=== PATIENT | female | born 1980 ===

== ENCOUNTER 2017-05-16 11:23 | Emergency (ER) | payer SELFPAY ==
--- NOTE | 2017-05-16 11:56 | C.PDOC ---
History Of Present Illness 36 year old female presents to the ED with complaints of blurry vision, bilateral eye itching, pain , and tearing for five days. Patient states symptoms are worse for the right eye than the left. She notes similar symptoms five years ago and does wear glasses but no contact lenses. Patient denies injury or redness of the eyes. Time Seen by Provider: 05/16/17 11:56 Chief Complaint (Nursing): Eye Problem History Per: Patient History/Exam Limitations: no limitations Onset/Duration Of Symptoms: Days (5 days ) Current Symptoms Are (Timing): Still Present Injury To Eye?: No Quality: "Pain" Wears Contact Lens?: No Associated Symptoms: Pain, Itching. denies: FB Sensation Recent travel outside of the [place]: No Past Medical History Reviewed: Historical Data, Nursing Documentation, Vital Signs Vital Signs: Last Vital Signs Temp 98.1 F 05/16/17 13:05 Pulse 71 05/16/17 13:05 Resp 18 05/16/17 13:05 BP 119/65 05/16/17 13:05 Pulse Ox 98 05/16/17 13:05 Family History: States: Other Other Family History: Non-contributory. - Social History Hx Alcohol Use: No Hx Substance Use: No - Immunization History Hx Tetanus Toxoid Vaccination: (unk) Hx Influenza Vaccination: No Hx Pneumococcal Vaccination: (unk) Review Of Systems Except As Marked, All Systems Reviewed And Found Negative. Constitutional: Negative for: Fever Eyes: Negative for: Conjunctivae Inflammation Physical Exam - Physical Exam Appears: Non-toxic, No Acute Distress Skin: Warm, Dry Eye(s): bilateral: Normal Inspection, PERRL, EOMI, Other (no conjunctival injection. no corneal abrasions seen w fluor staining. IOP 13 OD 22 OS. ) Neurological/Psych: Oriented x3 ED Course And Treatment O2 Sat by Pulse Oximetry: 99 (room air ) Progress Note: Patient was given 0.5% Ophth Soln. Disposition - Disposition Referrals: Eliceo Herbert MD [Staff Provider] - Disposition: HOME/ ROUTINE Disposition Time: 12:41 Condition: STABLE Additional Instructions: Please follow up with the eye doctor. You can also try zatidor eye drops available [id number]. Return to the ER for any worsening symptoms or for any other concerns. Prescriptions: Erythromycin 0.5% [Erythromycin] 1 applic OU BID #1 tube Instructions: Eye Pain (ED) Forms: General Discharge Instructions, [facility] (Azeri) - Clinical Impression Clinical Impression: Itchy eyes - Scribe Statement The provider has reviewed the documentation as recorded by the Scribe Shirley Carolina All medical record entries made by the Scribe were at my direction and personally dictated by me. I have reviewed the chart and agree that the record accurately reflects my personal performance of the history, physical exam, medical decision making, and the department course for this patient. I have also personally directed, reviewed, and agree with the discharge instructions and disposition.
[2017-05-16] MEDS ORDERED: Tetracaine 0.5% Ophth 2 ML BOTTLE OU ONE (12:03)
[2017-05-16] MEDS ORDERED: Tetracaine 0.5% Ophth (OR ONLY) ONE (12:05)
[2017-05-16] MEDS ORDERED: Fluorescein 1 mg Ophthalmic Strip ONE (12:05)
[2017-05-16 13:07] VITALS: BP 119/65; PULSE 71; RESP 18; TEMP 98.1
[2017-05-16 20:23] VITALS: O2SAT 99
== END 2017-05-16 13:06 | disposition home or self-care (01) ==
LOC: C.ER 11:23
DX: H57.8 Other specified disorders of eye and adnexa (principal)

== ENCOUNTER 2017-09-16 00:09 | Emergency (ER) | payer SELFPAY ==
[2017-09-16 00:39] VITALS: O2SAT 100
--- NOTE | 2017-09-16 01:04 | C.PDOC ---
History Of Present Illness Patient presents to the ER with a complaint of worsening left lower thoracic pain for the past 3 days that worsens with cough. Patients she has been coughing intermittently for the past 15 days. She is currently speaking in complete sentences and denies fever or chills. Time Seen by Provider: 09/16/17 01:04 Chief Complaint (Nursing): Back Pain History Per: Patient History/Exam Limitations: no limitations Onset/Duration Of Symptoms: Days Current Symptoms Are (Timing): Still Present Quality Of Discomfort: Unable To Describe Severity: Moderate Pain Scale Rating Of: 4 Previous Symptoms: None Associated Symptoms: None Exacerbating Factor(s): Other (Cough) Recent travel outside of the [place]: No Past Medical History Reviewed: Historical Data, Nursing Documentation, Vital Signs Vital Signs: Last Vital Signs Temp 98.8 F 09/16/17 00:35 Pulse 67 09/16/17 00:35 Resp 18 09/16/17 00:35 BP 117/77 09/16/17 00:35 Pulse Ox 100 09/16/17 01:35 Family History: States: No Known Family Hx - Social History Hx Alcohol Use: No Hx Substance Use: No - Immunization History Hx Tetanus Toxoid Vaccination: (unk) Hx Influenza Vaccination: No Hx Pneumococcal Vaccination: (unk) Review Of Systems Constitutional: Negative for: Fever, Chills Respiratory: Positive for: Cough. Negative for: Wheezing Gastrointestinal: Negative for: Nausea, Vomiting, Abdominal Pain Musculoskeletal: Positive for: Other (Left rib pain) Physical Exam - Physical Exam Appears: Non-toxic Skin: Warm, Dry Head: Normacephalic Oral Mucosa: Moist Chest: Symmetrical, Tenderness (Left rib cage on ribs 9-12, no crepitus palpated.) Cardiovascular: Rhythm Regular Respiratory: No Rales, Rhonchi (Scattered), No Wheezing Gastrointestinal/Abdominal: Soft, No Tenderness Neurological/Psych: Oriented x3, Normal Speech ED Course And Treatment - Laboratory Results Result Diagrams: 09/16/17 01:28 09/16/17 01:28 ECG: Interpreted By Me O2 Sat by Pulse Oximetry: 100 (Room air) Pulse Ox Interpretation: Normal - Radiology CXR: Interpreted by Me, Viewed By Me CXR Interpretation: No: Infiltrates, Fracture, Pnemothorax Progress Note: Blood work, CXR, flu swab, and urinalysis ordered. IV fluids, motrin, and toradol administered. Reevaluation Time: 02:24 Reassessment Condition: Improved Disposition Counseled Patient/Family Regarding: Studies Performed, Diagnosis, Need For Followup, Rx Given - Disposition Referrals: [facility] [Outside] [facility] [Outside] Disposition: HOME/ ROUTINE Disposition Time: 01:04 Condition: FAIR Additional Instructions: Please return if symptoms recur Prescriptions: Azithromycin [Zithromax Tri-Duong] 500 mg PO DAILY #3 tablet Benzonatate [Tessalon Perles] 100 mg PO TID #15 sgl Ibuprofen [Motrin Tab] 800 mg PO TID PRN #15 tab PRN Reason: Pain, Moderate (4-7) Instructions: Upper Respiratory Infection (ED), Chest Wall Pain (ED) Forms: [facility] (Russian) - Clinical Impression Clinical Impression: URI (upper respiratory infection), Chest wall pain - Scribe Statement The provider has reviewed the documentation as recorded by the Scribe Lawrence Santos All medical record entries made by the Scribe were at my direction and personally dictated by me. I have reviewed the chart and agree that the record accurately reflects my personal performance of the history, physical exam, medical decision making, and the department course for this patient. I have also personally directed, reviewed, and agree with the discharge instructions and disposition.
[2017-09-16] MEDS ORDERED: Lactated Ringer's 1,000 ML IV ONE (01:08)
[2017-09-16 01:32] LABS: BASO % 0.5 % (0.0-2.0); EOS # 0.1 K/uL (0.0-0.7); EOS % 1.2 % (0.0-4.0); HEMOGLOBIN 13.2 g/dL (11.0-16.0); LYMPH # 1.8 K/uL (1.0-4.3); LYMPH % 24.2 % (20.0-40.0); MEAN CORPUSCULAR HGB CONC 34.9 g/dL (33.0-37.0); MEAN PLATELET VOLUME 9.2 fL (7.2-11.7); MONO # 0.6 K/uL (0.0-0.8); MONO % 7.3 % (0.0-10.0); NEUT # 5.1 K/uL (1.8-7.0); NEUT % 66.8 % (50.0-75.0); RBC 4.55 Mil/uL (3.80-5.20); RED CELL DISTRIBUTION WIDTH 12.9 % (11.5-14.5); WHITE BLOOD COUNT 7.6 K/uL (4.8-10.8)
[2017-09-16 01:35] LABS: VENOUS BLOOD GAS PCO2 46 mmHg (40-60); VENOUS BLOOD GAS PO2 30 mm/Hg (30-55)
[2017-09-16] MEDS ORDERED: Lactated Ringer's 1,000 ML ONE (01:36)
[2017-09-16 01:43] LABS: HCG,QUALITATIVE URINE NEGATIVE (NEGATIVE)
[2017-09-16 01:45] LABS: CALCIUM 9.4 mg/dl (8.6-10.4); GFR AFRICAN-AMERICAN > 60; GFR NON-AFRICAN AMERICAN > 60
[2017-09-16 01:46] LABS: SQUAMOUS EPITHIAL 1 /hpf (0-5); URINE BACTERIA RARE (<OCC); URINE BILIRUBIN NEGATIVE (NEGATIVE); URINE BLOOD NEGATIVE (NEGATIVE); URINE CLARITY Clear (Clear); URINE COLOR Colorless (YELLOW); URINE GLUCOSE (UA) NORMAL (Normal); URINE LEUKOCYTE ESTERASE NEG Leu/uL (Negative); URINE NITRATE NEGATIVE (NEGATIVE); URINE PROTEIN NEGATIVE (NEGATIVE); URINE UROBILINOGEN NORMAL mg/dL (0.2-1.0)
[2017-09-16 01:52] LABS: ALB/GLOB RATIO 1.1 (1.0-2.1); ALBUMIN 4.4 g/dL (3.5-5.0); ALT/SGPT 22 U/L (9-52); AST/SGOT 41 U/L (14-36); BLOOD UREA NITROGEN 13 mg/dL (7-17)
[2017-09-16 03:00] VITALS: BP 126/70; PULSE 82; RESP 20; TEMP 98
--- NOTE | 2017-09-16 09:59 | RAD ---
HISTORY: cough, left rib pain COMPARISON: 06/30/2016 TECHNIQUE: Chest PA and lateral FINDINGS: LUNGS: No active pulmonary disease. PLEURA: No significant pleural effusion identified. No pneumothorax apparent. CARDIOVASCULAR: Normal. OSSEOUS STRUCTURES: No significant abnormalities. VISUALIZED UPPER ABDOMEN: Normal. OTHER FINDINGS: None. IMPRESSION: No active disease.
== END 2017-09-16 02:59 | disposition home or self-care (01) ==
LOC: SUPCPDRO 00:09 → C.ER 00:09
DX: J06.9 Acute upper respiratory infection, unspecified (principal); R07.89 Other chest pain
CPT/HCPCS: 71046; 80053; 81001; 82803; 84703; 85025; 87804; 96361; 96374; 99283; J1885; J7120

== ENCOUNTER 2018-01-16 13:16 | Emergency (ER) | payer OTHER ==
[2018-01-16 13:38] VITALS: O2SAT 99
--- NOTE | 2018-01-16 15:26 | C.PDOC ---
History Of Present Illness Pt c/o left upper back/shoulder region pain. Time Seen by Provider: 01/16/18 14:58 Chief Complaint (Nursing): Back Pain History Per: Patient Onset/Duration Of Symptoms: Days (about 1 month) Current Symptoms Are (Timing): Still Present Quality Of Discomfort: "Pain" Severity: Moderate Associated Symptoms: None Exacerbating Factor(s): Movement Additional History Per: Prior Records Past Medical History Reviewed: Historical Data, Nursing Documentation, Vital Signs Vital Signs: Last Vital Signs Temp 98.1 F 01/16/18 13:35 Pulse 81 01/16/18 13:35 Resp 20 01/16/18 13:35 BP 142/88 01/16/18 13:35 Pulse Ox 99 01/16/18 13:35 - Medical History PMH: No Chronic Diseases Family History: States: Unknown Family Hx - Social History Hx Alcohol Use: No Hx Substance Use: No - Immunization History Hx Tetanus Toxoid Vaccination: (unk) Hx Influenza Vaccination: No Hx Pneumococcal Vaccination: (unk) Review Of Systems Except As Marked, All Systems Reviewed And Found Negative. Constitutional: Negative for: Fever, Weakness Respiratory: Negative for: Shortness of Breath, Hemoptysis Gastrointestinal: Negative for: Vomiting, Abdominal Pain Genitourinary: Negative for: Incontinence Musculoskeletal: Negative for: Neck Pain, Leg Pain Skin: Negative for: Rash Neurological: Negative for: Weakness, Numbness Physical Exam - Physical Exam Appears: Non-toxic, No Acute Distress Skin: Normal Color, Warm, Dry, No Rash Head: Atraumatic, Normacephalic Eye(s): bilateral: Normal Inspection, PERRL, EOMI Neck: Normal ROM, No Midline Cervical Tenderness, No Step Off Deformity, Supple Chest: Symmetrical Cardiovascular: Rhythm Regular Respiratory: Normal Breath Sounds, No Accessory Muscle Use Gastrointestinal/Abdominal: Soft, No Tenderness Back: No CVA Tenderness, No Vertebral Tenderness Extremity: Normal ROM, No Pedal Edema, Calf Tenderness Neurological/Psych: Oriented x3, Normal Motor, Normal Sensation ED Course And Treatment O2 Sat by Pulse Oximetry: 99 Pulse Ox Interpretation: Normal Reassessment Condition: Improved Disposition Counseled Patient/Family Regarding: Diagnosis, Need For Followup, Rx Given - Disposition Referrals: [facility] [Outside] Disposition: HOME/ ROUTINE Disposition Time: 15:28 Condition: STABLE Additional Instructions: Follow up in the clinic for further evaluation and treatment. Return to the ER if you develop shortness of breath, weakness, numbness, worsening of symptoms or if you have any other concerns. Prescriptions: Naproxen 375 mg PO BID PRN #20 tablet PRN Reason: Pain, Moderate (4-7) Instructions: Muscle and Bone Pain (DC) - Clinical Impression Clinical Impression: Musculoskeletal pain
[2018-01-16 15:49] VITALS: BP 116/80; PULSE 61; RESP 18; TEMP 98.4
== END 2018-01-16 15:47 | disposition home or self-care (01) ==
LOC: C.ER 13:16
DX: M79.1 Myalgia (principal)